=== PATIENT | female | born 1935 | race Caucasian/White ===

== ENCOUNTER 2022-12-12 17:50 | Emergency (ER) | payer MEDICARE, SELFPAY ==
[2022-12-12 17:51] VITALS: PULSE 78; RESP 16; TEMP 38.1; O2SAT 98; BMI 20.5
--- NOTE | 2022-12-12 18:08 | EKG12_ITS ---
Test Reason : DYSRHYTHMIA Blood Pressure : / mmHG Vent. Rate : 105 BPM Atrial Rate : 105 BPM P-R Int : 142 ms QRS Dur : 080 ms QT Int : 352 ms P-R-T Axes : 049 002 069 degrees QTc Int : 465 ms Sinus tachycardia Nonspecific T wave abnormality Abnormal ECG Confirmed by ANGELA RAHMAN, BRYANT ([id number]), editor house organ RUDI GRIFFIN ([id number]) on 12/14/2022 1:16:54 PM Referred By: ANNEMARIE Confirmed By:BRYANT MILLER MD
--- NOTE | 2022-12-12 18:15 | EX.ED.DYSGE1 ---
HPI History of Present Illness Chief Complaint: General Illness Detail of Chief Complaint: Diarrhea, not doing well. Informant: legal guardian, spouse/S.O. and family Onset/Context/Timing Onset: Days Context: Sudden Onset Timing: Intermittent Quality: Watery diarrhea Location: Presents from home Current Severity: Severe Maximum Severity: Severe Worsened by: Unknown Relieved by: Nothing Associated Symptoms Associated Symptoms: Unknown Narrative Narrative: Patient is an 87-year-old woman. She was on home hospice. She was brought to the emergency room for evaluation and treatment. Patient has dementia. She is unable to contribute with regards to history and limited physical exam. She answers no to all questions. She fractured her right forearm approximately 5 weeks ago according to daughter. The patient and her live with the daughter. She was found to have a urinary tract infection at that time. She was treated with antibiotics. She has not been on any antibiotic in approximately 4 weeks. They were unaware that she had an elevated temperature of 100.6. Discussed hospice care versus palliative care versus [facility]. initially stated he wanted everything done. After further discussion he agrees to no intubation, no CPR, no defibrillation. He is agreeable to IV fluids and IV antibiotics. Prior similar symptoms: No Recent Illness/Hospitalization: Yes PFSH PFS Medical History (Updated 12/12/22 @ 19:[address] Zachery Aden MD) Diarrhea Fracture Medical History no medical history no medical history (What is document in the HPI is all that was obtainable. Will review prior records) Allergy/AdvReac Type Severity Reaction Status Date / Time No Known Allergies Allergy Verified 12/12/22 17:50 Social History (Updated 12/12/22 @ 18:[address] Zachery Aden MD) household members: spouse and family Smoking Status: Never smoker ROS ROS ED Review of Systems ROS Unobtainable: due to mental status and other Details: Limited to what is documented in the HPI. EXAM Physical Exam Const Vital Signs: 12/12/22 17:51 12/12/22 18:38 12/12/22 19:50 Temperature 100.6 F H 101.6 F H Temperature Source Temporal Temporal Pulse Rate 78 108 H Respiratory Rate 16 14 Respiratory Effort Normal Non-Labored Respiratory Pattern Normal Blood Pressure 152/59 H Blood Pressure Mean 90 Pulse Ox 98 93 Oxygen Delivery Method Room Air Room Air Positive well developed; Negative for obese, contractures or unkempt General Appearance ED: well developed and NAD; Negative for unkempt, contractures, cyanotic, diaphoretic or pallor Nutritional Appearance: Negative for obese HEENT Reports dry mucous membranes HEENT Narrative: Head is atraumatic normocephalic. Ears are normal. Nares are patent. Posterior pharynx is without erythema or exudate. Mouth ED: Yes dry mucous membranes Mouth: dry mucous membranes Eyes PERRL and EOMs intact bilaterally General Eye ED: Negative for pale conjunctiva or scleral icterus Neck no lymphadenopathy, supple and no JVD Chest Wall inspection of chest normal and palpation of chest normal Resp normal respiratory effort and clear to auscultation bilaterally Cardio regular rate, regular rhythm, S1 normal heart sound, S2 normal heart sound and no murmurs GI normal to inspection, nondistended, normoactive bowel sounds, non-distended and no masses; Negative for hepatosplenomegaly Back/Spine no CVA tenderness Thoracic Spine / Upper Back: Negative for thoracic spinal tenderness Lumbar Spine / Lower Back: Negative for lumbar spinal tenderness Extremity Extremity Narrative: Patient has a volar splint right arm due to fracture. Neuro No oriented x3 and CN's II-XII intact bilaterally Sensorium / Orientation: orientation impaired; Negative for alert Psych Psych Narrative: Flat affect Appearance: Negative for unkempt Skin No skin turgor normal Skin Narrative: Patient has a butterfly type rash on her face. There is no history of autoimmune disorder and specifically no history of lupus. General Skin Exam: Negative for elasticity normal, jaundice or pallor MDM MDM MDM Narrative Medical decision making narrative: Patient presents with diarrhea, fever and recent antibiotic use for urinary tract infection according to daughter. Will obtain blood work to assess for metabolic infectious cause of her mental status change. Also because of the profuse diarrhea will obtain C. difficile toxin and stool for enteric pathogen's. Since she clinically appears dehydrated IV fluids were ordered. Lab Data Attestation: I reviewed the patient's lab results. Lab results narrative: White count is elevated with shift. There is no bandemia. In all likelihood is due to diarrhea. Unable to differentiate whether this is due to bacterial or viral diarrhea. Comprehensive metabolic panel is remarkable for a glucose of 130. CO2 anion gap are normal. Renal function is normal. Labs: Laboratory Results - last 24 hr 12/12/22 12/12/22 18:40 18:40 WBC 17.6 H RBC 4.43 Hgb 12.9 Hct 39.5 MCV 89.2 MCH 29.1 MCHC 32.7 RDW Std Deviation 48.5 H RDW Coeff of [place] 14.8 H Plt Count 233 MPV 9.5 Immature Gran % (Auto) 0.500 Neut % (Auto) 85.6 H Lymph % (Auto) 8.2 L [place] % (Auto) 5.2 Eos % (Auto) 0.1 Baso % (Auto) 0.4 Absolute Neuts (auto) 15.0 H Absolute Lymphs (auto) 1.44 Nucleated RBC % 0 Sodium 136 Potassium 3.6 Chloride 102 Carbon Dioxide 26.0 Anion Gap 8 BUN 8 Creatinine 0.91 Estim Creat Clear Calc 43.67 Est GFR (MDRD) Af Amer 75 Est GFR (MDRD) Non-Af 62 BUN/Creatinine Ratio 8.8 L Glucose 130 H Calcium 8.4 L Total Bilirubin 0.90 AST 18 ALT 20 Alkaline Phosphatase 104 Total Protein 6.0 L Albumin 2.3 L Globulin 3.7 Albumin/Globulin Ratio 0.6 L Radiography Chest X-Ray - ED: 1 View and Read by ED Physician (No view chest x-ray was independently viewed and interpreted by me. There is elevation of left hemidiaphragm. The patient is slightly rotated. There are minimal chronic changes noted. There may be atelectasis at the bases. Osseous structures reveal no acute abnormality. Perihilar regions unrem) Diagnostic Testing: Clinical Impression(s) from Imaging Studies Chest X-Ray 12/12/22 18:41 IMPRESSION: Bibasilar atelectasis. Electronically Signed: Niels Benitez MD at 18:51 EST , Treatment and Re-Evaluation Narrative: Home hospice nurse spoke to family and patient. Patient will be admitted to their intensive care unit. Plan is to discharge once urine specimen has been obtained.. They will obtain a stool culture. I was informed at 1952 the patient's temperature is 101.6. Patient received p.o. acetaminophen Patient is DNR comfort care, hospice. Discharge Plan Triage Chief Complaint: General Illness ED Provider: Zachery Aden Dx/Rx/DC Orders Clinical Impression: Fever, Diarrhea, Leukocytosis, Acute dehydration, Dementia, DNR (do not resuscitate) discussion, Sinus tachycardia, Hypertension Instructions: ED FUO Adult, ED Diarrhea, Unknown Cause Disposition Disposition: Acute Care Hospital Discharge Location: [facility]
[2022-12-12] MEDS: 0.9% Normal Saline 1,000 ML 250 ML IV ×2 (18:35→23:07)
--- NOTE | 2022-12-12 18:41 | RAD_ITS ---
INDICATION: Fever EXAMINATION/TECHNIQUE: X-RAY - XR Chest 1 View COMPARISON: None. FINDINGS: LINES/DEVICES: None. LUNGS: Bilateral lung base atelectasis. No consolidation, edema or effusion. No pneumothorax. MEDIASTINUM AND CARDIOVASCULAR STRUCTURES: Cardiac silhouette not enlarged. Central airways and mediastinal contour are unremarkable. RAD/Chest 1 View (Portable) IMPRESSION: Bibasilar atelectasis. Electronically Signed: Niels Benitez MD at 18:51 EST ,
[2022-12-12 18:54] LABS: Absolute Lymphocyte Count 1.44 X10^3/uL (0.83-4.51); Basophil# 0.07 X10^3/uL; Basophil% 0.4 % (0-1); Eosinophil# 0.01 X10^3/uL; Eosinophils% 0.1 % (0-5); Hematocrit 39.5 % (37-47); Hemoglobin 12.9 g/dL (12.0-15.0); Lymphocyte # 1.44 X10^3/ul (0.83-4.51); Lymphocyte % 8.2 % (19-41); Mean Corp Hgb Conc 32.7 g/dL (32-36); Mean Corpuscular Hgb 29.1 pg (27.0-32.0); Mean Corpuscular Volume 89.2 fL (81-99); Mean Platelet Vol. 9.5 fl (6.2-12.0); Monocyte# 0.91 X10^3/uL; Monocyte% 5.2 % (0-10); NRBC Flagged by Analyzer 0 % (0-5); Neutrophil # 15.04 X10^3/uL (2.7-7.7); Neutrophil % 85.6 % (47-70); Platelet Count 233 K/mm3 (150-450); RBC Distribution Width CV 14.8 % (11.6-14.6); RBC Distribution Width SD 48.5 fl (35.1-43.9); Red Blood Count 4.43 M/mm3 (4.2-5.4); White Blood Count 17.6 K/mm3 (4.4-11.0)
[2022-12-12 19:14] LABS: ALB/GLOB Ratio 0.6 RATIO (0.9-2.4); AST(SGOT) 18 U/L (15-37); Alanine Aminotransfer ALT/SGPT 20 U/L (13-56); Albumin, Serum 2.3 g/dL (3.2-5.0); Alkaline Phosphatase 104 U/L (45-117); Anion Gap 8 (5-15); BUN 8 mg/dL (7-18); BUN/Creat Ratio 8.8 RATIO (10-20); Calcium,Total 8.4 mg/dL (8.5-10.1); Chloride 102 mmol/L (98-107); Creatinine, Serum 0.91 mg/dL (0.55-1.02); EST Glomerular Filtration Rate 62 mL/min (>60); Est Glom Filt Rate - Afr Amer 75 mL/min (>60); Estimated Creatinine Clearance 43.67 ml/min; Globulin 3.7 g/dL (2.2-4.2); Glucose 130 mg/dL (74-106); Potassium 3.6 mmol/L (3.5-5.1); Sodium Level 136 mmol/L (136-145)
[2022-12-12 19:50] VITALS: BP 152/59; PULSE 108; RESP 14; TEMP 38.7; O2SAT 93
[2022-12-12] MEDS: Acetaminophen 500 MG Tablet PO (19:57)
[2022-12-12 20:19] LABS: Red Blood Cells-Urine 0 SEEN /hpf (0-5); White Blood Cells 0 SEEN /hpf (0-5)
[2022-12-12 20:47] VITALS: BP 98/62; PULSE 115; O2SAT 93
[2022-12-12 20:51] VITALS: BP 127/64; PULSE 112; RESP 18; TEMP 38.3; O2SAT 95
[2022-12-12 21:12] LABS: Color, Urine Yellow (Yellow); Glucose, Dipstick Normal (Normal); Ketone-Dipstick 5 mg/dl (Negative); Leukocyte Esterase-Dipstick Negative /ul (Negative); Nitrite-Dipstick Negative (Negative); Occult Blood-Urine 10 /ul (Negative); Protein-Dipstick 15 mg/dl (Negative); Specific Gravity, Urine 1.015 (1.002-1.030); Urine Bilirubin Dipstick Negative (Negative); Urine Clarity Clear (Clear); Urine Urobilinogen Normal (Normal)
[2022-12-12 21:18] LABS: Bacteria RARE /hpf (None Seen); Mucous, Urine RARE /hpf (<or=2+); Squamous Epithelial Cells - UA 0-5 SEEN /hpf (5-10)
[2022-12-12 21:57] VITALS: BP 113/62; PULSE 105; RESP 16; TEMP 37.7; O2SAT 90; O2SAT 91
--- NOTE | 2022-12-13 02:03 | ED.RN ---
TRANSPORT ARRIVES TO TAKE PATIENT TO [facility]. FAMILY REMAINS AT BEDSIDE.
== END 2022-12-13 02:04 | disposition short-term general hospital (02) ==
PROVIDERS: Emergency Provider Emergency Medicine; Visit Provider Emergency Medicine
DX: R50.9 Fever, unspecified (principal); F03.90 Unspecified dementia, unspecified severity, without behavioral disturbance, psychotic disturbance, mood disturbance, and anxiety; D72.829 Elevated white blood cell count, unspecified; I10 Essential (primary) hypertension; R19.7 Diarrhea, unspecified; E86.0 Dehydration; R00.0 Tachycardia, unspecified; Z66 Do not resuscitate
CPT/HCPCS: 71045; 80053; 81001; 85025; 87040; 87086; 93005; 96360; 96361; 99285; J7040; P9612; A4216